=== PATIENT | male | born 1955 | race Caucasian/White ===

== ENCOUNTER 2019-08-21 15:52 | Emergency (ER) | payer MEDICARE, MEDICAID ==
[~2019-08-21] VITALS: Ht 170.2 cm; Wt 68.4 kg
[~2019-08-21 15:52] MED LIST: CEPH-443 PO
[2019-08-21 16:02] VITALS: BP 139/74; PULSE 78; RESP 18; Ht 170.2 cm; Wt 68.4 kg
== END 2019-08-21 18:53 | disposition home or self-care (01) ==
LOC: FTE 15:52
DX: N30.90 Cystitis, unspecified without hematuria (principal)
CPT/HCPCS: 81003; 87086; 99283